=== PATIENT | female | born 1985 | race Caucasian/White ===

== ENCOUNTER 2018-01-01 20:24 | Emergency (ER) | payer OTHER ==
[~2018-01-01] VITALS: Ht 157.5 cm; Wt 87.0 kg
[2018-01-02] MEDS ORDERED: HYDROCODONE/ACETAMINOPHEN 5/325MG TABLET PO ONE (02:30)
[2018-01-02 04:40] VITALS: BP 118/73
== END 2018-01-02 04:42 | disposition home or self-care (01) ==
LOC: ER 20:37
DX: S30.1XXA Contusion of abdominal wall, initial encounter (principal); M54.2 Cervicalgia; R07.89 Other chest pain; F17.200 Nicotine dependence, unspecified, uncomplicated; F12.10 Cannabis abuse, uncomplicated; V89.2XXA Person injured in unspecified motor-vehicle accident, traffic, initial encounter; Y93.89 Activity, other specified; Y92.89 Other specified places as the place of occurrence of the external cause; Y99.8 Other external cause status
CPT/HCPCS: 71250; 72125; 74176; 93005; 99284